=== PATIENT | male | born 1990 | race Caucasian/White ===

== ENCOUNTER 2020-03-03 19:07 | Emergency (ER) | payer BC, OTHER ==
[~2020-03-03] VITALS: Ht 185.4 cm; Wt 103.0 kg
[~2020-03-03 19:07] MED LIST: VICO5TAB
[2020-03-03] MEDS ORDERED: NOVOINJ SC (19:16)
[2020-03-03] MEDS ORDERED: INSULANT SC (19:16)
[2020-03-03] MEDS ORDERED: LISI-542 PO (19:16)
[2020-03-03] MEDS ORDERED: SERT50TA29 PO (19:16)
[2020-03-03] MEDS ORDERED: BUSP10TA PO (19:16)
[2020-03-03] MEDS ORDERED: NAPR-837 PO (19:35)
[2020-03-03] MEDS ORDERED: ROBA750T4 PO (19:35)
[2020-03-03] MEDS ORDERED: methocarbamoL 750 MG TAB PO ONE (19:45)
[2020-03-03] MEDS ORDERED: KETOROLAC 60MG 2ML VIAL IM ONE (19:45)
[2020-03-03 19:56] VITALS: BP 128/70
== END 2020-03-03 19:57 | disposition home or self-care (01) ==
LOC: M ED 19:07
DX: S29.012A Strain of muscle and tendon of back wall of thorax, initial encounter (principal); X50.0XXA Overexertion from strenuous movement or load, initial encounter; Y92.89 Other specified places as the place of occurrence of the external cause; E11.9 Type 2 diabetes mellitus without complications; I10 Essential (primary) hypertension; F17.220 Nicotine dependence, chewing tobacco, uncomplicated; Z79.899 Other long term (current) drug therapy; Z79.4 Long term (current) use of insulin
CPT/HCPCS: 96372; 99283; J1885

== ENCOUNTER 2021-12-27 19:20 | Emergency (ER) | payer BC, SELFPAY ==
[~2021-12-27] VITALS: Ht 188 cm; Wt 108.4 kg
[~2021-12-27 19:20] MED LIST changes: +BUSP10TA PO; +INSULANT SC; +LISI5TAB11 PO; +NAPR-837 PO; +NOVOINJ SC; +ROBA750T4 PO; +SERT50TA29 PO
[2021-12-27] MEDS ORDERED: LISI20TA35 PO (19:40)
[2021-12-27 22:28] LABS: BASO % 0.4 % (0.0-1.0); EOS # 0.1 10^3/uL (0.0-0.5); EOS % 1.3 % (0.0-3.0); HEMATOCRIT 38.5 % (42.0-52.0); HEMOGLOBIN 13.4 g/dl (13.5-17.5); LYMPH # 2.2 10^3/uL (1.5-5.0); LYMPH % 25.4 % (24.0-44.0); MEAN CORPUSCULAR HEMOGLOBIN 30.6 pg (27.0-33.0); MEAN CORPUSCULAR HGB CONC 34.8 g/dl (32.0-36.5); MEAN CORPUSCULAR VOLUME 87.9 fl (80.0-96.0); MONO # 0.6 10^3/uL (0.0-0.8); MONO % 6.8 % (2.0-8.0); NEUTROPHILS # 5.7 10^3/uL (1.5-8.5); NEUTROPHILS % 65.9 % (36.0-66.0); PLATELET COUNT, AUTOMATED 372 10^3/uL (150-450); RED BLOOD COUNT 4.38 10^6/uL (4.30-6.10); WHITE BLOOD COUNT 8.6 10^3/uL (4.0-10.0)
[2021-12-27 22:53] LABS: ALBUMIN 3.5 GM/DL (3.2-5.2); ALT/SGPT 25 U/L (12-78); BILIRUBIN,DIRECT 0.2 MG/DL (0.0-0.2); BILIRUBIN,TOTAL 0.3 MG/DL (0.2-1.0); BLOOD UREA NITROGEN 17 MG/DL (7-18); CALCIUM LEVEL 8.9 MG/DL (8.5-10.1); CARBON DIOXIDE LEVEL 27 MEQ/L (21-32); CHLORIDE LEVEL 107 MEQ/L (98-107); CREATININE FOR GFR 0.85 MG/DL (0.70-1.30); GLOMERULAR FILTRATION RATE > 60.0 (>60); GLUCOSE, FASTING 203 MG/DL (70-100); LIPASE 166 U/L (73-393); SODIUM LEVEL 138 MEQ/L (136-145)
[2021-12-27] MEDS ORDERED: NS 1,000 ML IV ONE (23:15)
[2021-12-27] MEDS ORDERED: KETOROLAC 30 MG/ML 1ML VIAL IV ONE (23:15)
[2021-12-28] MEDS ORDERED: ISOVUE-370 76% 100ML VIAL As Ordered ONE (00:06)
[2021-12-28 01:05] VITALS: BP 122/77
[2021-12-28] MEDS ORDERED: AMOX875T2 PO (01:42)
[2021-12-28] MEDS ORDERED: cefTRIAXone SOD 1 GM in D5W MINI-BAG PLUS 50 ML IV ONE (01:45)
== END 2021-12-28 02:34 | disposition home or self-care (01) ==
LOC: M ED 19:20
DX: K35.80 Unspecified acute appendicitis (principal); R91.8 Other nonspecific abnormal finding of lung field; R10.9 Unspecified abdominal pain; E10.9 Type 1 diabetes mellitus without complications
CPT/HCPCS: 74177; 80048; 80076; 83690; 85025; 96361; 96365; 96375; 99284; J0696; J1885; Q9967

== ENCOUNTER 2021-12-28 18:55 | Emergency (ER) | payer BC ==
[~2021-12-28] VITALS: Ht 188 cm; Wt 107.3 kg
[~2021-12-28 18:55] MED LIST changes: +AMOX875T2 PO; +LISI20TA35 PO
[2021-12-28 18:56] VITALS: BP 137/82
[2021-12-29 00:18] LABS: BASO % 0.5 % (0.0-1.0); EOS # 0.1 10^3/uL (0.0-0.5); EOS % 1.3 % (0.0-3.0); HEMATOCRIT 41.1 % (42.0-52.0); HEMOGLOBIN 14.1 g/dl (13.5-17.5); LYMPH # 1.9 10^3/uL (1.5-5.0); MEAN CORPUSCULAR HEMOGLOBIN 30.6 pg (27.0-33.0); MEAN CORPUSCULAR HGB CONC 34.3 g/dl (32.0-36.5); MEAN CORPUSCULAR VOLUME 89.2 fl (80.0-96.0); MONO # 0.5 10^3/uL (0.0-0.8); MONO % 5.5 % (2.0-8.0); NEUTROPHILS # 6.1 10^3/uL (1.5-8.5); NEUTROPHILS % 69.9 % (36.0-66.0); PLATELET COUNT, AUTOMATED 401 10^3/uL (150-450); RED BLOOD COUNT 4.61 10^6/uL (4.30-6.10); WHITE BLOOD COUNT 8.7 10^3/uL (4.0-10.0)
[2021-12-29 00:19] LABS: ALBUMIN 3.7 GM/DL (3.2-5.2); ALT/SGPT 22 U/L (12-78); BILIRUBIN,DIRECT 0.2 MG/DL (0.0-0.2); BILIRUBIN,TOTAL 0.4 MG/DL (0.2-1.0); BLOOD UREA NITROGEN 14 MG/DL (7-18); CALCIUM LEVEL 9.2 MG/DL (8.5-10.1); CARBON DIOXIDE LEVEL 25 MEQ/L (21-32); CHLORIDE LEVEL 108 MEQ/L (98-107); CREATININE FOR GFR 0.89 MG/DL (0.70-1.30); GLOMERULAR FILTRATION RATE > 60.0 (>60); GLUCOSE, FASTING 295 MG/DL (70-100); LIPASE 138 U/L (73-393); POTASSIUM SERUM 4.3 MEQ/L (3.5-5.1); SODIUM LEVEL 138 MEQ/L (136-145); TOTAL PROTEIN 7.4 GM/DL (6.4-8.2)
== END 2021-12-29 00:49 | disposition left against medical advice (07) ==
LOC: M ED 18:55
DX: Z53.21 Procedure and treatment not carried out due to patient leaving prior to being seen by health care provider (principal)

== ENCOUNTER → 2023-05-29 | Day surgery (SDC) | payer BC ==
[~2023-05-29] VITALS: Ht 188 cm; Wt 108.1 kg
[~2023-05-29] MED LIST changes: +AMOX500T2 PO; +ANDR1.62 TOP; +HYDR-3713 PO; +LIDOCAINE 2% 100MG/5ML SDV (FOR ANES.) As Ordered ONE; +LISI10TA24 PO; +NS 1,000 ML IV ONE; +ROSU20TA61 PO; +TEST1GEL10 TOP; +propofoL 200 MG/20 ML VIAL As Ordered ONE
[2023-05-29 08:11] VITALS: BP 120/55; O2SAT 96
== END | disposition home or self-care (01) ==
LOC: M OPP 06:47
PROVIDERS: ATTEND Surgery
DX: Z12.11 Encounter for screening for malignant neoplasm of colon (principal); Z80.0 Family history of malignant neoplasm of digestive organs; D12.5 Benign neoplasm of sigmoid colon; Z87.891 Personal history of nicotine dependence; E10.9 Type 1 diabetes mellitus without complications; G47.30 Sleep apnea, unspecified; Z99.89 Dependence on other enabling machines and devices; Z79.02 Long term (current) use of antithrombotics/antiplatelets; Z79.84 Long term (current) use of oral hypoglycemic drugs; Z79.890 Hormone replacement therapy; Z79.899 Other long term (current) drug therapy

== ENCOUNTER → 2024-09-29 | Outpatient (CLI) | payer BC, OTHER ==
[~2024-09-29] MED LIST changes: -LIDOCAINE 2% 100MG/5ML SDV (FOR ANES.) As Ordered ONE; -NS 1,000 ML IV ONE; -ROSU20TA61 PO; +ROSU20TA86 PO; +TEST10GE TOP; -TEST1GEL10 TOP; -propofoL 200 MG/20 ML VIAL As Ordered ONE
== END ==
LOC: M SLEEP 20:00
PROVIDERS: ATTEND Family Medicine
DX: G47.33 Obstructive sleep apnea (adult) (pediatric) (principal)